=== PATIENT | male | born 1960 | race Caucasian/White ===

== ENCOUNTER 2018-05-24 12:48 | Emergency (ER) | payer OTHER ==
[~2018-05-24] VITALS: Ht 180.3 cm; Wt 98.9 kg
[2018-05-24 13:08] VITALS: Ht 180.3 cm; Wt 98.9 kg
[2018-05-24 15:27] VITALS: BP 144/100
== END 2018-05-24 15:27 | disposition home or self-care (01) ==
LOC: ED 12:48
DX: M76.62 Achilles tendinitis, left leg (principal); I10 Essential (primary) hypertension; E78.00 Pure hypercholesterolemia, unspecified
CPT/HCPCS: J1885; Q0092